=== PATIENT | female | born 1955 | race Caucasian/White ===

== ENCOUNTER 2018-09-05 15:21 | Emergency (ER) | payer OTHER ==
[2018-09-05 15:55] VITALS: BP 132/60
--- NOTE | 2018-09-05 16:10 | UC ---
Respiratory Complaint HPI - HPI Summary HPI Summary: 63-year-old female comes in with a chief complaint of 4-5 days of upper respiratory tract infection symptoms. She's had some rhinorrhea some sore throat mostly congestion is gone into her chest. She's been able to get some sputum up but not much. She does have a cough. She's feeling very fatigued. She has used albuterol in the past for environmental allergies but she is not tried the albuterol for this illness. Patient had surgery about a month ago with a cystocele rectocele repair. She reports that after about 2 weeks she felt quite good and she's been up and been very active and feeling well after that. But nonetheless for 5 days she's been feeling ill again. She has no prior history of pulmonary embolus or deep venous thrombosis. She is not a smoker. She has no calf pain or swelling. She is having splinting left upper chest pain. It's also worse with movement of her left shoulder. No complaint of any weakness or numbness. - History of Current Complaint Chief Complaint: UCRespiratory Stated Complaint: RESPIRATORY Time Seen by Provider: 09/05/18 15:37 Pain Intensity: 6 - Allergies/Home Medications Allergies/Adverse Reactions: Allergies Allergy/AdvReac Type Severity Reaction Status Date / Time amoxicillin Allergy Hives Verified 09/05/18 15:59 ciprofloxacin [From Cipro] Allergy See Comment Verified 09/05/18 15:59 clarithromycin Allergy See Comment Verified 09/05/18 16:06 lansoprazole Allergy See Comment Verified 09/05/18 16:06 nitrofurantoin Allergy Muscle Ache Verified 09/05/18 15:59 [From Macrodantin] Pertussis Vaccines Allergy Swelling Verified 09/05/18 15:59 sulfamethoxazole Allergy Palpitation Verified 09/05/18 15:59 [From Bactrim] s tetanus toxoid, adsorbed Allergy Swelling Verified 09/05/18 15:59 trimethoprim [From Bactrim] Allergy Palpitation Verified 09/05/18 15:59 s FLU VACCINE Allergy Swelling Uncoded 09/05/18 15:59 Home Medications: Home Medications raNITIdine HCl [Ranitidine HCl] 1 tab DAILY PRN 09/05/18 [History Confirmed 12/16] PMH/Surg Hx/FS Hx/Imm Hx Previously Healthy: Yes GI/ History: Gastroesophageal Reflux - Surgical History Surgical History: Yes Surgery Procedure, Year, and Place: cystocele and rectocele, 08/09/18. hysterectomy - Social History Alcohol Use: None Substance Use Type: None Smoking Status (MU): Never Smoked Tobacco Review of Systems All Other Systems Reviewed And Are Negative: Yes Constitutional: Positive: Fatigue Skin: Positive: Negative Eyes: Positive: Negative ENT: Positive: Sore Throat, Nasal Discharge Respiratory: Positive: Cough, Other - see hpi Cardiovascular: Positive: Chest Pain Gastrointestinal: Positive: Negative Motor: Positive: Negative Neurovascular: Positive: Negative Musculoskeletal: Positive: Other: - see hpi Neurological: Positive: Negative Psychological: Positive: Negative Is Patient Immunocompromised?: No Physical Exam Triage Information Reviewed: Yes Appearance: Well-Appearing, No Pain Distress, Well-Nourished Vital Signs: Initial Vital Signs Temp 98.4 F 09/05/18 15:50 Pulse 101 09/05/18 15:50 Resp 18 09/05/18 15:50 BP 132/60 09/05/18 15:50 Pulse Ox 96 09/05/18 15:50 Vital Signs Reviewed: Yes Eye Exam: Normal Eyes: Positive: Conjunctiva Clear ENT: Positive: Pharynx normal, TMs normal Neck: Positive: Supple Respiratory: Positive: Lungs clear, Normal breath sounds, No respiratory distress Cardiovascular: Positive: RRR Musculoskeletal: Positive: Strength Intact, ROM Intact, No Edema - No calf tenderness, Other: - Reports the left upper chest pain is worse with ROM of left shoulder. NL radial pulses/cap refill. No sensation deficit. Strength 5/5. Neurological: Positive: Alert, Muscle Tone Normal Psychological Exam: Normal Psychological: Positive: Age Appropriate Behavior Skin Exam: Normal Respiratory Course/Dx - Course Course Of Treatment: Patient Name: FAVIO HARPER Medical Record#: [id number] Ordering Physician: Bairon Slater MD Acct.#: [id number] : 1955 Age: 63 Sex: F Location: [facility] Exam Date: 09/05/18 1605 ADM Status: DEP ER Order Information: CHEST PA LAT 2 VWS Accession Number: [id number] CPT: 56238 INDICATION: Cough and left upper chest pain COMPARISON: None TECHNIQUE: PA and lateral views of the chest were obtained. FINDINGS: The heart and mediastinum are normal in size and contour. The lungs are grossly clear. There is no evidence of large pleural effusion. Visualized bones are normal for the patient's age. There is no radiographic evidence of free air beneath the diaphragm IMPRESSION: No radiographic evidence of acute cardiopulmonary disease. <Electronically signed by Angelo Blake MD in OV> 09/05/18 7123 I discussed the x-ray with the patient. No signs of a pneumonia or other pathology. I did explain to her that the x-ray did not rule out a pulmonary embolus. DISCUSSED VIRAL VERSES BACTERIAL INFECTION AND THE ROLE OF ANTIBIOTICS. THE PATIENT PREFERS TO BE ON ANTIBIOTICS AT THIS TIME. Patient has multiple antibiotic allergies. Her allergies include Clarithromycin was part of a peptic ulcer disease triple therapy so therefore she is not sure if the allergy was due to the amoxicillin or the lancet pole of the clarithromycin. At that time she had some peeling of her tongue. We discussed either trying days azithromycin versus trying something like doxycycline patient preferred to try to ease azithromycin at this time. Patient has had surgery within the last 1 month which puts her at increased risk for pulmonary embolus. I discussed this with the patient. I let her know that we have not ruled out a pulmonary embolus here in our clinic. She does have chest congestion and upper respiratory tract infection symptoms with her left-sided splinting pain. I discussed discussed with the patient if she wished to go the emergency Department to further evaluate for pulmonary embolus and she preferred not to do that at this time. She plans if she does not get better if she gets worse she will go to the emergency department. - Differential Dx/Diagnosis Provider Diagnosis: Chest pain, Bronchitis Discharge - Sign-Out/Discharge Documenting (check all that apply): Patient Departure All imaging exams completed and their final reports reviewed: Yes - Discharge Plan Condition: Stable Disposition: HOME Prescriptions: Azithromyxin GIORGIO (NF) [Z-Giorgio (Zithromax) 250 mg tabs #6] 2 tab PO .TODAY, THEN 1 DAILY #6 tab Patient Education Materials: Chest Pain (ED), Acute Bronchitis (ED) Referrals: Vivienne AMEZCUA,Jacques Bob [Primary Care Provider] - Additional Instructions: FOLLOW UP WITH YOUR DOCTOR. GO TO THE EMERGENCY DEPARTMENT IF YOUR CONDITION PERSISTS OR WORSENS; PAIN, SHORTNESS OF BREATH, YOU FEEL ILL, CALF PAIN/SWELLING, SIGNS OF A DEEP VENOUS THROMBOSIS OR PULMONARY EMBOLUS OR ANY QUESTIONS OR CONCERNS. - Billing Disposition and Condition Condition: STABLE Disposition: Home
== END 2018-09-05 16:34 | disposition home or self-care (01) ==
LOC: UCCORT 15:21
DX: R07.89 Other chest pain (principal); J40 Bronchitis, not specified as acute or chronic; K21.9 Gastro-esophageal reflux disease without esophagitis; Z88.1 Allergy status to other antibiotic agents; Z88.0 Allergy status to penicillin; Z88.2 Allergy status to sulfonamides; Z88.7 Allergy status to serum and vaccine; Z88.8 Allergy status to other drugs, medicaments and biological substances
CPT/HCPCS: 71046; 99201; G0463